=== PATIENT | female | born 1930 | race Caucasian/White ===

== ENCOUNTER 2017-12-10 14:20 | Emergency (ER) | payer MEDICARE, BC ==
[2017-12-10 14:37] LABS: ADD MAN DIFF? NO
[2017-12-10 14:41] LABS: ABNORMAL IP MESSAGE 1; BASOPHIL # 0.1 10^3/ul (0.0-0.1); BASOPHILS % 0.9 % (0.0-2.0); EOSINOPHILS # 0.2 10^3/ul (0.0-0.5); EOSINOPHILS % 2.3 % (0.0-7.0); HEMATOCRIT 33.8 % (37.0-47.0); HEMOGLOBIN 11.1 g/dl (12.0-16.0); LYMPHOCYTES # 0.5 10^3/ul (0.8-2.9); LYMPHOCYTES % 6.7 % (15.0-51.0); MEAN CORPUSCULAR HEMOGLOBIN 29.2 pg (29.0-33.0); MEAN CORPUSCULAR HGB CONC 32.8 g/dl (32.0-37.0); MEAN CORPUSCULAR VOLUME 88.9 fl (82.0-101.0); MEAN PLATELET VOLUME 11.4 fl (7.4-10.4); MONOCYTE # 0.7 10^3/ul (0.3-0.9); MONOCYTES % 9.4 % (0.0-11.0); NEUTROPHIL # 5.6 10^3/ul (1.6-7.5); NEUTROPHILS % 79.7 % (39.0-77.0); PLATELET COUNT 174 10^3/UL (140-415); RED CELL DISTRIBUTION WIDTH 15.7 % (11.5-14.5)
[2017-12-10 14:48] LABS: ANION GAP 10 (8-16); BLOOD UREA NITROGEN 22 mg/dl (7-20); CALCIUM 8.7 mg/dl (8.4-10.2); CARBON DIOXIDE 31 mmol/L (21-31); CHLORIDE 103 mmol/L (97-110); CREATININE 0.74 mg/dl (0.44-1.00); GLUCOSE 106 mg/dl (70-220); POTASSIUM 3.7 mmol/L (3.5-5.1); SODIUM 140 mmol/L (135-144)
[2017-12-10] MEDS: IPRATROPIUM (NEB) 0.5 MG/2.5 ML AMP INH (14:54)
[2017-12-10] MEDS: ALBUTEROL 0.083% (NEB) 2.5 MG/3 ML AMP INH (14:54)
[2017-12-10 14:58] LABS: POSITIVE DIFF @See below
[2017-12-10 15:00] LABS: TROPONIN-I 0.079 ng/ml (0.000-0.120)
[2017-12-10 16:13] LABS: AADO2 Venous 122.9 mmHg; MODE NASAL CANNULA; MetHgb Venous 0 %; Sample Type Blood venous; Site OTHER; Venous COHb 1.1 %; Venous Fraction OxyHgb 51.1 %; Venous Oxygen Sat 51.7 mmHG (55.0-75.0); Venous Total Hemglobin 12.2 g/dl
== END 2017-12-10 16:46 | disposition home or self-care (01) ==
LOC: E/R 14:20
DX: J20.9 Acute bronchitis, unspecified (principal); I11.0 Hypertensive heart disease with heart failure; I50.9 Heart failure, unspecified; Z87.891 Personal history of nicotine dependence
CPT/HCPCS: 36415; 71045; 80048; 82803; 84484; 85025; 93005; 94664; 99285-25